=== PATIENT | female | born 2005 | race Caucasian/White ===

== ENCOUNTER 2025-03-22 15:11 | Outpatient (REF) | payer BC, SELFPAY ==
[2025-03-22 14:44] LABS: Abs Immature Grans 0.01 10^3/uL (0.0-0.06); Absolute Basophil Count 0.02 10^3/uL (0.0-0.2); Absolute Eosinophil Count 0.07 10^3/uL (0.0-0.7); Absolute Lymphocyte Count 1.86 10^3/uL (1.2-3.4); Absolute Neutrophil Count 2.82 10^3/uL (1.2-6.7); Basophils % 0.4 %; Eosinophils % 1.3 %; HCT 38.1 % (36.0-46.0); HGB 13.2 g/dL (11.2-15.7); Immature Grans % 0.2 %; Lymphocytes % 35.2 %; MCH 31.8 pg (27.0-33.0); MCHC 34.6 % (32.0-36.0); MCV 92 fL (80-95); Monocytes % 9.5 %; Neutrophils % 53.4 %; Platelet Count 248 10^3/uL (130-400); RBC 4.15 10^6/uL (3.93-5.22); RDW 11.5 % (11.7-14.6); RDW-SD 38.8 fL; WBC 5.28 10^3/uL (4.4-10.8)
[2025-03-22 14:57] LABS: ESR 1 mm/hr (0-20)
[2025-03-22 15:00] LABS: C-Reactive Protein < 0.50 mg/dL (<or=0.5)
[2025-03-22 22:47] LABS: Rheumatoid Factor <8.6 IU/mL (<12.0)
[2025-03-23 10:26] LABS: Lyme Ab w Rflx to Lyme Confirm Negative (Negative)
[2025-03-23 13:04] LABS: dsDNA Ab, IgG 31.3 IU/mL (<27.0)
[2025-03-23 13:38] LABS: ANA Interpretation Positive (Negative); ANA Titer Pattern 1:80 Speckled
== END 2025-03-22 15:12 | disposition home or self-care (01) ==
LOC: LBN 15:11
PROVIDERS: Visit Provider Nurse Practitioner Family
DX: M79.18 Myalgia, other site (principal); L50.1 Idiopathic urticaria
CPT/HCPCS: 85652; 85025; 86038; 86140; 86225; 86431; 86618

== ENCOUNTER 2025-07-12 04:52 | Outpatient (CLI) | payer BC, SELFPAY ==
[2025-07-15 13:04] LABS: RNP Ab, IgG <0.2 U; SS-A/Ro, IgG <0.2 U; SS-B (La) Ab, IgG <0.2 U; Sm (Smith) Ab, IgG <0.2 U
== END 2025-07-12 04:53 | disposition home or self-care (01) ==
LOC: LBO 07-13 04:53
PROVIDERS: Visit Provider Internal Medicine Rheumatology
DX: L50.8 Other urticaria (principal)
CPT/HCPCS: 36415; 86038; 86160; 86225; 86235

== ENCOUNTER 2025-08-09 09:25 | Emergency (ER) | payer BC, SELFPAY ==
[2025-08-09 09:30] VITALS: BP 130/80; PULSE 93; RESP 16; TEMP 36.7; O2SAT 99
--- NOTE | 2025-08-09 09:30 | RT.EKG_ITS ---
APPROVED REPORT Exam: Resting ECG Reason for Exam: syncope Patient Location: E HR:73 bpm ECG Measurements Heart Rate 73 AXIS DE 146 P 70 QRSd 97 QRS 82 QT 396 T 27 QTc 436 Conclusion Sinus rhythm...normal P axis, V-rate 60- 99 No Occlusion VT
--- NOTE | 2025-08-09 09:40 | W.ED.GENAD ---
Discharge Plan Disposition Patient Disposition: Home Discharge Details Clinical Impression: Syncope and collapse Primary Care Provider: Unknown,Unknown ED Provider: Zac Blackburn [place] Meds and New Rx's Prescriptions: Continued fluoxetine 20 mg capsule 20 mg PO DAILY methocarbamol 500 mg tablet 500 mg PO TID PRN hydroxyzine HCl 25 mg tablet 25 mg PO TID PRN cyclobenzaprine 5 mg tablet 5 mg PO TID PRN Nexplanon 68 mg implant 1 implant subdermal ONCE Rx Instructions: as a single dose cholecalciferol (vitamin D3) [Vitamin D3] 25 mcg (1,000 unit) capsule 25 mcg PO DAILY Discharge Instructions Additional Instructions: You were seen in the emerged part for your episode of passing out. You had a reassuring exam. As we discussed if you develop nausea or vomiting does not stop or if you develop any black or bloody stools or if you pass out again please return to the emergency department. Otherwise please follow-up with your primary care provider. Stand Alone Forms: Work Release Discharge Data Discharge Date/Time-TO BE ENTERED AT DEPARTURE: 08/09/25 10:15 HPI General Date/Time Provider Initiated Documentation: 08/09/25 09:40. HPI Narrative: MDM This is an overall quite well-appearing normothermic and not tachycardic 20-year-old female with recurrent syncope in the setting of shower with preceding lightheadedness and nausea with reassuring ECG for which patient will be discharged with an empiric trial of expectant outpatient management. No black nor bloody stools to suggest increased risk of GI bleed and no anticoagulation. No sudden onset headache to suggest subarachnoid hemorrhage no indication for CT head. No dysuria or frequency to suggest UTI. Patient and I discussed that she should return to the ED if she developed nausea or vomiting did not stop if she developed any confusion or if she had any vomiting did not stop. She was monitored on telemetry during her ED stay and had no dysrhythmias. She had a normal reassuring bedside echocardiogram. Per Nexus criteria, cervical CT not obtained. The patient had no c-spine midline tenderness, no evidence of intoxication, was AAOx3, had no focal neurological deficits, and no painful distracting injuries. Given no significant headache and no signs of head trauma I did not obtain CT head. Patient was negative on the [place] head trauma criteria. High risk features: 1. Age of the patient (elderly a greatest risk) 2. Syncope during exertion 3. Family history of sudden [place] syncope rule: 1. History of CHF 2. Hematocrit < 30 3. EKG abnormalities 4. Present shortness of breath 5. Systolic blood pressure less than 90 Cardiac arrhythmia/EKG or abnormalities considered: 1. ACS: No ST changes 2. Tachy-lubna: No blocks 3. WPW: No delta wave 4. Brugada: No RSR'; R-bundle appearance 5. HCM: No LVH; needle Qs/ T-wave inversions 6. Short/ Long QT: 300 < QTc < 500; no family hx 7. Arrhythmogenic Right Ventricular Dysplasia: No epsilon wave, no inverted Ts in anterior precordium [Diagnostic interpretations performed by me: Per my independent interpretation EKG shows: Narrow complex normal sinus rhythm at a rate of 73. Normal axis. Intervals within normal limits. No ST segment abnormalities. No T wave inversions. No prior for comparison. No acute injury pattern. HPI This is a patient with a history of recurrent syncope presenting with a recent episode of fainting. The patient experienced a sudden fainting episode while showering this morning, which was unusual as she typically anticipates these episodes and takes preventive measures such as sitting down. Prior to the episode, she reported tinnitus and blurred vision. The episode lasted approximately 10 seconds and resulted in a head injury. She also reported nausea but did not experience vomiting. There was no tongue biting, loss of bowel or bladder control, difficulty breathing, or chest pain associated with the episode. She has no history of thromboembolic events in her lower extremities or pulmonary system. There were no recent surgical procedures. She is not currently on anticoagulant therapy. She reports feeling dizzy and having a headache. There is no evidence of bleeding. She has been experiencing recurrent fainting episodes, approximately 3 to 4 times per week, for the past 1.5 years. 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 She is on fluoxetine for depression, hydroxyzine for anxiety, cyclobenzaprine for pain and sleep issues, and methocarbamol for pain management. Exam General: Well-appearing in no acute distress speaking in complete sentences. Head: Normocephalic, atraumatic. Eye:[Pupils equal, round reactive to light.] Extraocular eye movements intact. No conjunctival injection. No scleral icterus. Ear, nose, mouth, throat: Grossly normal inspection. Normal voice, handling secretions normally. Neck: Trachea midline. No midline cervical spinal tenderness. Cardiovascular: Well-perfused distal extremities. Regular rate and rhythm. No murmurs. Respiratory: Nonlabored respiration. Clear lungs bilaterally. Gastrointestinal: Nondistended abdomen. Soft. Nontender. Back: No thoracic nor lumbar spinal tenderness. No step-offs. No deformities. Musculoskeletal: No edema. Moving all 4 extremities spontaneously. Skin: Normal for age and race, grossly normal temperature and turgor. No acute rash. Neurologic: Alert and appropriate, no apparent acute deficits. GCS 15. Cranial nerves II through XII intact grossly. Psychiatric: Mood and manner are appropriate. Grooming and personal hygiene are appropriate. Related Data Home Medications ?Medication ?Instructions ?Recorded ?Confirmed cholecalciferol (vitamin D3) 25 25 mcg PO DAILY 08/09/25 08/09/25 mcg (1,000 unit) capsule (Vitamin D3) cyclobenzaprine 5 mg tablet 5 mg PO TID PRN 08/09/25 08/09/25 etonogestrel 68 mg subdermal 1 implant subdermal ONCE 08/09/25 08/09/25 implant (Nexplanon) fluoxetine 20 mg capsule 20 mg PO DAILY 08/09/25 08/09/25 hydroxyzine HCl 25 mg tablet 25 mg PO TID PRN 08/09/25 08/09/25 methocarbamol 500 mg tablet 500 mg PO TID PRN 08/09/25 08/09/25 Allergies Allergy/AdvReac Type Severity Reaction Status Date / Time No Known Allergies Allergy Unverified 08/09/25 09:32 General Stated Complaint: Dizzy/Sync JUAN: 3 Course Vital Signs Vital signs: Vital Signs Temperature 36.7 C 08/09/25 09:30 Pulse 93 H 08/09/25 09:30 Respiratory Rate 16 08/09/25 09:30 Blood Pressure 130/80 08/09/25 09:30 Pulse Oximetry 99 08/09/25 09:30 Temperature 36.7 C 08/09/25 09:30 Temperature Source Oral 08/09/25 09:30 Pulse 93 H 08/09/25 09:30 Respiratory Rate 16 08/09/25 09:30 Blood Pressure 130/80 08/09/25 09:30 Blood Pressure Position Sitting 08/09/25 09:30 Pulse Oximetry 99 08/09/25 09:30 Oxygen Delivery Method Room Air 08/09/25 09:30 Oxygen Flow Rate 0 08/09/25 09:30 Pain Level 4 08/09/25 09:30 PFSH All Active Problems (Updated 08/09/25 @ 10:03 by Zac Blackburn MD) Syncope and collapse (Acute) Social History Smoking/Tobacco Use Status: Never Smoking risk assessment performed?: Yes Alcohol Intake: never Drug use: Never Substance use type: does not use Do you feel safe at home: Yes Do you feel safe in your relationship?: Yes POCUS Exam (ED) Limited Cardiac Exam DATE OF EXAM: 08/09/25 TIME OF EXAM: 10:06 PROVIDER THAT PERFORMED THE STUDY: Zac Blackburn IS THIS A REPEAT EXAM DURING THIS ENCOUNTER: no REASON FOR EXAM: Syncope VISUALIZED STRUCTURES: Four Chambers, Left ventricle and LVOT VIEW OBTAINED: Apical 4-Chamber, Parasternal long-axis and Subxiphoid PERTINENT FINDINGS/IMPRESSION: No pericardial effusion and No RV dilation DIFFERENTIAL DIAGNOSES: Aortic outflow track less than 4 cm, good squeeze, RV less than LV, no significant pericardial effusion. Exam complete
[2025-08-09 09:43] VITALS: RESP 12
[2025-08-09] MEDS: Ibuprofen 600 MG TAB PO (10:08)
[2025-08-09] MEDS: Acetaminophen 500 MG TAB 1000 MG PO (10:08)
[2025-08-09] MEDS: Ondansetron O.D.T. 4 MG TABEF PO (10:08)
[2025-08-09 10:14] VITALS: BP 100/49; PULSE 90; RESP 16; O2SAT 100
== END 2025-08-09 10:15 | disposition home or self-care (01) ==
LOC: ER 10:40
PROVIDERS: Emergency Provider Emergency Medicine
DX: R55 Syncope and collapse (principal)
CPT/HCPCS: 93005; 93308; 99284; 93010